=== PATIENT | male | born 1975 | race Caucasian/White ===

== ENCOUNTER 2019-02-12 10:14 | Inpatient (IN) ==
[2019-02-12] MEDS ORDERED: IOPAMIDOL 100 ML BOTTLE IV ONE (10:15)
[2019-02-12] MEDS ORDERED: 0.9 % SODIUM CHLORIDE 1,000 ML IV ONE ×3 (10:17→12:18)
[2019-02-12] MEDS ORDERED: ONDANSETRON 4 MG/2 ML VIAL IV ONE ×2 (10:23→13:50)
--- NOTE | 2019-02-12 10:26 | Emergency Department Note ---
Abdominal Pain HPI - General Chief Complaint: Abdominal Pain Stated Complaint: right lower abd pain that started 15 min ago Time Seen by Provider: 02/12/19 10:20 Source: patient Mode of arrival: wheelchair Limitations: no limitations - History of Present Illness HPI Narrative: This patient had a sudden onset of pretty severe abdominal pain about 15 minutes ago. He is complaining about his right lower quadrant but he is pretty tender and almost rigid in the epigastrium as well. He thinks he may actually have an ulcer currently. He has never had a kidney stone. He has had flulike symptoms for the last couple of days with nausea vomiting diarrhea. He does not feel any pain in his back. - Related Data Home Medications Medication Instructions Recorded Confirmed No Known Home Meds 03/18/18 02/12/19 Allergies Allergy/AdvReac Type Severity Reaction Status Date / Time No Known Drug Allergies Allergy Unverified 03/18/18 16:55 Review of Systems All systems ED: reviewed and negative except as stated. Abdominal Pain PMH - Past Medical History Medical history: Reports: seizures, thyroid disease Psychiatric history: Reports: anxiety, depression - Social History Smoking status: Current every day smoker Physical Exam Limitations: no limitations General appearance: alert Head: atraumatic Eye: Present: normal appearance ENT: Present: normal exam Neck: Present: normal inspection Chest: Present: normal inspection Respiratory: Present: normal lung sounds bilaterally Cardiovascular: Present: regular rate, normal rhythm, normal heart sounds Abdominal: Present: soft, tenderness, guarding. Absent: distention Abdominal tenderness: Present: diffuse, moderate Neurological: Present: alert Psychiatric: Present: normal affect Skin: Present: warm, dry Course Vital Signs Temperature 97.4 F 02/12/19 10:15 Pulse Rate 86 02/12/19 10:15 Respiratory Rate 18 02/12/19 10:15 Blood Pressure 95/60 02/12/19 10:15 Pulse Oximetry (%) 96 02/12/19 10:15 Temperature 97.4 F 02/12/19 10:48 Pulse Rate 76 02/12/19 10:48 Respiratory Rate 17 02/12/19 10:48 Blood Pressure 97/72 02/12/19 10:48 Pulse Oximetry (%) 99 02/12/19 10:48 Abdominal Pain - [facility] Narrative Medical decision making narrative: Surprisingly this patient CT scan shows severe appendicitis with even possible small abscess. Plain film was negative. No free air seen. I did discuss the case with Dr. Lam who will see the patient shortly and take him to surgery. He is given Zosyn. - Lab Data Lab results reviewed: Yes I reviewed the patient's lab results. Result diagrams: 02/12/19 10:20 02/12/19 10:20 Lab Results 02/12/19 02/12/19 Range/Units 10:20 10:20 Band Neutrophils % Not Reportable VBG Lactic Acid 3.0 H (0.5-2.0) mmol/L - Radiology Data Radiology results reviewed: Yes I reviewed the patient's radiology results. Disposition Pt seen by CHANGE MANAGEMENT LEAD/PA only: No Clinical Impression: Acute appendicitis Disposition: Xfer As Outpt/Obs ([facility]) Condition: Good Referrals: No,PCP [Primary Care Provider] - Time of Disposition: 11:26
[2019-02-12] MEDS: HYDROmorphone 2 MG/ML VIAL IV PRN ×2 (10:33→11:09)
[2019-02-12] MEDS ORDERED: PIPERACILLIN SODIUM/TAZOBACTAM 3.375 GM in DEXTROSE 5% IN WATER 50 ML IV ONE (11:01)
--- NOTE | 2019-02-12 11:08 | Cat Scan Report ---
History: New onset severe right lower quadrant pain TECHNIQUE: The patient was imaged following intravenous but no oral contrast scanning from the diaphragm to the symphysis pubis. Sagittal and coronal reformats were created. Radiation exposure was limited using dose reduction technology. FINDINGS: The liver and spleen are normal in size and homogeneous. The small hiatus hernia. The gallbladder and bile ducts are normal. There is no evidence of a mass or inflammation the pancreas. The adrenals and kidneys are normal. There is no kidney stone or hydronephrosis. The patient has ileus pattern with several borderline distended fluid-filled loops of small bowel. Some of them contain air-fluid levels.. The appendix is severely inflamed and distended. It measures 1.5 cm in transverse diameter and there is a large amount of inflammation of the fat surrounding it. No appendicolith is present. Along the inferior border of the inflamed appendix there is a pocket of fluid with bubbles of air. This is more likely a partially collapsed cecum, rather than an abscess. No free intraperitoneal air is present. Trace amount of ascites is seen deep in the right lower pelvis. IMPRESSION: Severe appendicitis Dr. Roca was called with the results Interpreted and Authenticated by: Ga Jacome 02/12/19
--- NOTE | 2019-02-12 11:27 | XRay Report ---
HISTORY: New onset severe right lower quadrant pain FINDINGS: No free intra-abdominal air is present. There are couple loops of mildly dilated small bowel with air-fluid levels in left mid abdomen. There is also a moderate amount of fluid with air-fluid level in the stomach. The colon is decompressed. There is no apparent mass or abscess. IMPRESSION: Mild ileus Interpreted and Authenticated by: Ga Jacome 02/12/19
[2019-02-12 11:28] LABS: Hematocrit 42.6 % (40.1-51.0); Hemoglobin 14.7 g/dL (13.7-17.5); Mean Cell Volume 97.3 fL (80.0-100.0); Mean Corpuscular HGB Conc 34.5 g/dL (31.0-36.0); Mean Platelet Volume 10.7 fL (7.4-10.4); Platelet Count 217 K/mcL (140-440); RBC 4.38 M/mcL (4.63-6.08)
[2019-02-12 11:41] LABS: ALT/SGPT 35 U/l (0-40); AST/SGOT 32 U/l (0-37); Albumin 4.3 gm/dL (3.2-5.2); Albumin/Globulin Ratio 1.3 (1.0-2.3); Alkaline Phosphatase 95 U/L (39-117); Bilirubin,Total 1.3 mg/dL (0.0-1.0); Blood Urea Nitrogen 20 mg/dl (6-20); Calcium 9.2 mg/dl (8.6-10.4); Carbon Dioxide 21 mmol/L (22-30); Globulin 3.3 gm/dL (2.2-3.7); Glomerular Filtration Rate 109; Glucose 127 mg/dL (70-105)
[2019-02-12 11:48] LABS: Chloride 93 mmol/L (96-108)
[2019-02-12 11:55] LABS: Band Neutrophils % 21 % (0-10); Lymphocytes % 2 % (15-49); Metamyelocytes % 2 % (0-0); Monocytes % (Manual) 3 % (1-12); Platelet Estimate NORMAL (NORMAL); RBC Morphology NORMAL (NORMAL); Segmented Neutrophils % 72 % (38-78)
--- NOTE | 2019-02-12 13:14 | General Surg History&Physical ---
History of Present Illness Patient information: Note initiated : 02/12/19 at 1:12 pm Service Date, if different from initiated Date: [] Patient: Sp Yu a 43 y/o M admitted on for right lower abd pain that started 15 min ago. Chief Complaint: [] HPI: Mr. Yu is a 43 year old M Admitted with acute appendicitis. The patient has a 2 day history of flulike symptoms. He had some lower abdominal pain with fullness and bloating followed by nausea and vomiting. Most of the nausea and vomiting was on Sunday. Today he developed acute severe pain about 15 minutes before coming to the emergency room. He was seen in the emergency room with right lower quadrant tenderness with findings of 31,000, white count. Lactate was 3. Inpatient panel was normal. CT shows this markedly dilated appendix with periappendiceal inflammation and fluid. He is admitted with acute appendicitis. Review of Systems All systems PM: reviewed and no additional remarkable complaints except as stated (negative except as noted in history of present illness) Past History Past medical history: Prior history of seizure disorder but none in the past year and he is not on any therapy. Anxiety with depression Past surgical history: No surgical procedures Past family history: Mother age 63 due to complications of chronic obstructive lung disease and kidney failure. Father age 64 due to coronary artery disease and acute myocardial infarction. 2 siblings alive and well without illness Past social history: Smokes every day about one half pack of cigarettes per day. Drinks beer frequently. Uses marijuana frequently Medications and Allergies Home Medications Medication Instructions Recorded Confirmed Type No Known Home Meds 03/18/18 02/12/19 History Allergies Allergy/AdvReac Type Severity Reaction Status Date / Time No Known Drug Allergies Allergy Unverified 03/18/18 16:55 Exam Temp Pulse Resp BP Pulse Ox 97.4 F 86 12 102/77 98 02/12/19 10:48 02/12/19 12:16 02/12/19 11:31 02/12/19 12:16 02/12/19 12:16 - General physical appearance well developed, no distress, other (underweight) - Eyes PERRL, normal ocular movement - ENT normal pinna, normal nares, normal mucosa, no hearing loss, no congestion - Head Head exam IM: Present: atraumatic, normocephalic - Neck no masses, no bruits, trachea midline, no lymphadenopathy, no venous distension - Cardiovascular Cardiovascular exam IM: Present: normal rate and rhythm - Respiratory normal expansion, normal respiratory effort, clear to auscultation - Abdomen Abdomen: Present: soft, tender (. Diffuse tenderness with guarding or rebound IN The right lower quadrant), bowel sounds Hernia: Present: none - Genitourinary Present: normal penis with no external lesions, other ( indwelling Charlton catheter) - Integumentary Present: no rash, no growths, no abnormal pigmentation - Neurologic Present: normal coordination, normal sensation - Musculoskeletal Present: normal gait, normal posture - Psychiatric Present: oriented to time, oriented to person, oriented to place, speech is normal, memory intact Assessment and Plan (1) Acute appendicitis Patient is counseled for laparoscopic appendectomy and that will be performed later today. Status: Acute
[2019-02-12] MEDS ORDERED: SUGAMMADEX SODIUM 200 MG/2 ML VIAL IV ONE (13:50)
[2019-02-12] MEDS ORDERED: MIDAZOLAM 5 MG/5 ML VIAL IV ONE (13:50)
[2019-02-12] MEDS ORDERED: fentaNYL 250 MCG/5 ML VIAL IV ONE (13:50)
[2019-02-12] MEDS ORDERED: DEXAMETHASONE 10 MG/ML VIAL IV ONE (13:50)
[2019-02-12] MEDS ORDERED: ROCURONIUM 10 MG/ML ML IV ONE (13:50)
[2019-02-12] MEDS ORDERED: LIDOCAINE HCL/PF 100 MG/5 ML SYRINGE IV ONE (13:50)
[2019-02-12] MEDS ORDERED: PROPOFOL 200 MG/20 ML VIAL IV ONE (13:50)
[2019-02-12] MEDS ORDERED: HETASTARCH 6% 500 ML BAG IV ONE (13:50)
[2019-02-12] MEDS ORDERED: IPRATROPIUM/ALBUTEROL 3 ML AMPUL.NEB NEB PRN (14:26)
[2019-02-12] MEDS ORDERED: diphenhydrAMINE 50 MG/ML VIAL IV PRN (14:26)
[2019-02-12] MEDS ORDERED: LACTATED RINGERS 250 ML IV PRN (14:26)
[2019-02-12] MEDS ORDERED: BENZOCAINE/MENTHOL 1 LOZENGE PO PRN (14:26)
[2019-02-12] MEDS ORDERED: KETOROLAC 30 MG/ML VIAL IV PRN (14:26)
[2019-02-12] MEDS ORDERED: ONDANSETRON 4 MG/2 ML VIAL IV PRN (14:26)
[2019-02-12] MEDS ORDERED: MEPERIDINE 25 MG/ML SYRINGE IV PRN (14:26)
[2019-02-12] MEDS ORDERED: PROMETHAZINE 25 MG/ML VIAL IV PRN ×2 (14:26→14:54)
[2019-02-12] MEDS ORDERED: FLUMAZENIL 0.1 MG/ML ML IV PRN (14:26)
[2019-02-12] MEDS ORDERED: fentaNYL 100 MCG/2 ML VIAL IV PRN (14:26)
[2019-02-12] MEDS ORDERED: NALOXONE HCL 0.4 MG/ML VIAL IV PRN (14:26)
[2019-02-12] MEDS ORDERED: ACETAMINOPHEN 1,000 MG/100 ML BOTTLE IV ONE ×2 (14:26→20:28)
--- NOTE | 2019-02-12 14:28 | XRay Report ---
HISTORY: Preop for appendicitis FINDINGS: The lungs are clear. The heart, mediastinum, buck and pleura are normal. There is a subcutaneously implanted lap winding machine operator device in the left chest wall, lateral to the sternum. The heart is normal in size and there is no pulmonary vascular congestion. No free intra-abdominal air is present. IMPRESSION: Normal chest. Interpreted and Authenticated by: Ga Jacome 02/12/19
[2019-02-12] MEDS ORDERED: LACTATED RINGERS 1,000 ML IV SCH (14:30)
--- NOTE | 2019-02-12 14:48 | Brief Operative Note ---
Date of procedure: 02/12/19 Pre-op diagnosis: acute appendicitis Post-op diagnosis: other (acute gangrrenous appendicitis with perforation) Procedure: laparoscopic appendectomy Grafts/Implants: No (julio x 1) Anesthesia: GETA Findings: severe gangrenous appendicitis with perforation Complications: none Surgeon: Jazmyne Lam Estimated blood loss (cc): 20 Specimens Removed/Pathology: other (appendix) Condition: stable Disposition: PACU
[2019-02-12] MEDS: PIPERACILLIN SODIUM/TAZOBACTAM 3.375 GM in DEXTROSE 5% IN WATER 50 ML IV SCH (19:15)
[2019-02-12] MEDS: LACTATED RINGERS 1,000 ML IV SCH ×2 (19:25→23:54)
[2019-02-12] MEDS: ACETAMINOPHEN 1,000 MG in PREMIX 1 BAG IV SCH (20:31)
[2019-02-12] MEDS: 0.9 % SODIUM CHLORIDE 10 ML SYRINGE IV SCH (20:38)
[2019-02-13] MEDS: LACTATED RINGERS 1,000 ML IV SCH ×5 (00:19→21:49)
[2019-02-13] MEDS: PIPERACILLIN SODIUM/TAZOBACTAM 3.375 GM in DEXTROSE 5% IN WATER 50 ML IV SCH ×5 (00:22→23:27)
[2019-02-13] MEDS ORDERED: ACETAMINOPHEN 1,000 MG/100 ML BOTTLE IV ONE ×3 (01:33→14:44)
[2019-02-13] MEDS: ACETAMINOPHEN 1,000 MG in PREMIX 1 BAG IV SCH ×3 (02:01→15:34)
[2019-02-13] MEDS: 0.9 % SODIUM CHLORIDE 10 ML SYRINGE IV SCH ×3 (06:08→21:49)
[2019-02-13 07:15] LABS: Bilirubin,Direct < 0.2 mg/dL (0.0-0.3)
[2019-02-13 07:24] LABS: ALT/SGPT 55 U/l (0-40); AST/SGOT 63 U/l (0-37); Albumin 2.7 gm/dL (3.2-5.2); Alkaline Phosphatase 73 U/L (39-117); Bilirubin,Total 0.8 mg/dL (0.0-1.0); Blood Urea Nitrogen 12 mg/dl (6-20); Calcium 7.9 mg/dl (8.6-10.4); Carbon Dioxide 24 mmol/L (22-30); Chloride 106 mmol/L (96-108); Globulin 2.7 gm/dL (2.2-3.7); Glomerular Filtration Rate 104; Glucose 101 mg/dL (70-105); Lactate Dehydrogenase 247 U/L (94-250); Phosphorous 2.9 mg/dL (2.7-4.5); Triglycerides 60 mg/dl (<150); Uric Acid 1.8 mg/dL (2.5-8.0)
[2019-02-13 08:21] LABS: Basophils # (Auto) 0.01 K/mcL (0.00-0.30); Basophils % (Auto) 0.1 % (0.0-2.0); Eosinophils # (Auto) 0 K/mcL (0.00-0.70); Eosinophils % (Auto) 0 % (0.0-7.0); Granulocytes % (Auto) 88.6 % (38.0-78.0); Hematocrit 34.5 % (40.1-51.0); Hemoglobin 11.3 g/dL (13.7-17.5); Lymphocytes # (Auto) 0.62 K/mcL (1.50-4.80); Lymphocytes % (Auto) 4.7 % (15.5-49.0); Mean Cell Volume 100.5 fL (80.0-100.0); Mean Corpuscular HGB Conc 32.8 g/dL (31.0-36.0); Monocytes # (Auto) 0.87 K/mcL (0.10-0.90); Monocytes % (Auto) 6.6 % (1.0-12.0); Platelet Count 151 K/mcL (140-440); RBC 3.42 M/mcL (4.63-6.08); Red Cell Distribution Width 13.3 % (11.5-14.5); WBC 13.2 K/mcL (4.50-11.00)
--- NOTE | 2019-02-13 11:50 | General Surgery Progress Note ---
Subjective Patient reports: feels better, still having pain, pain is less, tolerating liquids well, flatus, no bowel movement, afebrile Narrative: Note initiated : 02/13/19 at 11:49 am Service Date, if different from initiated Date: [] Patient: Sp Yu 43 y/o M admitted on 02/12/19 for right lower abd pain that started 15 min ago. Chief Complaint: [patient is doing well status post laparoscopic appendectomy for perforated appendix. He has moderate amount of pain and has some nausea. He is afebrile and his white blood count has decreased from 30,000-13,000. White blood count 13.2, hemoglobin 11.3, hematocrit 34.5. ROXANN drainage is seropurulent and in large volumes.] Objective Temp Pulse Resp BP Pulse Ox 98.2 F 66 20 107/68 96 02/13/19 07:27 02/13/19 02:35 02/13/19 07:27 02/13/19 07:27 02/13/19 07:27 - Additional Data Intake & Output - Last 24 hours: Intake & Output 02/11/19 02/12/19 02/13/19 02/14/19 05:59 05:59 05:59 05:59 Intake Total 8970 1150 Output Total 2050 175 Balance 6920 975 Weight 160 lb 8 oz - General physical appearance well developed, well nourished, no distress, moderate pain - Eyes PERRL, normal ocular movement - ENT normal pinna, normal nares, normal mucosa, no hearing loss, no congestion - Neck no masses, no bruits, trachea midline, no lymphadenopathy, no venous distension - Respiratory normal expansion, normal respiratory effort, clear to auscultation - Cardiovascular Cardiovascular exam: Present: normal rate and rhythm, RRR, +S1, +S2. Absent: JVD, tachycardia - Abdomen tender (moderate abdominal tenderness; active bowel sounds; mild abdominal distention) - Integumentary no rash, no growths, no abnormal pigmentation - Neurologic normal coordination, normal sensation - Musculoskeletal normal gait, normal posture - Psychiatric oriented to time, oriented to person, oriented to place, speech is normal, memory intact - Labs 02/13/19 05:15 02/13/19 05:15 Diabetes panel 02/13/19 Range/Units 05:15 Sodium 139 (133-145) mmol/L Potassium 3.9 (3.3-5.1) mmol/L Chloride 106 (96-108) mmol/L Carbon Dioxide 24 (22-30) mmol/L BUN 12 (6-20) mg/dl Creatinine 0.9 (0.7-1.2) mg/dl Glucose 101 (70-105) mg/dL Calcium 7.9 L (8.6-10.4) mg/dl AST 63 H (0-37) U/l ALT 55 H (0-40) U/l Alkaline Phosphatase 73 (39-117) U/L Total Protein 5.4 L (5.9-8.4) gm/dL Albumin 2.7 L (3.2-5.2) gm/dL Triglycerides 60 (<150) mg/dl Calcium panel 02/13/19 Range/Units 05:15 Calcium 7.9 L (8.6-10.4) mg/dl Phosphorus 2.9 (2.7-4.5) mg/dL Albumin 2.7 L (3.2-5.2) gm/dL Pituitary panel 02/13/19 Range/Units 05:15 Sodium 139 (133-145) mmol/L Potassium 3.9 (3.3-5.1) mmol/L Chloride 106 (96-108) mmol/L Carbon Dioxide 24 (22-30) mmol/L BUN 12 (6-20) mg/dl Creatinine 0.9 (0.7-1.2) mg/dl Glucose 101 (70-105) mg/dL Calcium 7.9 L (8.6-10.4) mg/dl Adrenal panel 02/13/19 Range/Units 05:15 Sodium 139 (133-145) mmol/L Potassium 3.9 (3.3-5.1) mmol/L Chloride 106 (96-108) mmol/L Carbon Dioxide 24 (22-30) mmol/L BUN 12 (6-20) mg/dl Creatinine 0.9 (0.7-1.2) mg/dl Glucose 101 (70-105) mg/dL Calcium 7.9 L (8.6-10.4) mg/dl Total Bilirubin 0.8 (0.0-1.0) mg/dL AST 63 H (0-37) U/l ALT 55 H (0-40) U/l Alkaline Phosphatase 73 (39-117) U/L Total Protein 5.4 L (5.9-8.4) gm/dL Albumin 2.7 L (3.2-5.2) gm/dL Assessment and Plan (1) Acute appendicitis Status: Acute Assessment and plan: Patient will be continued on present IV antibiotics. Diet will be advanced. We'll recheck labs in the morning Current Visit: Yes - Time Spent With Patient Total time spent is greater than 50% in coordination of care (as documented) at patient's floor/unit and/or counseling patient:
--- NOTE | 2019-02-13 13:42 | Surgical Pathology Report ---
HISTOLOGY SPECIMEN MICROSCOPIC DIAGNOSIS APPENDIX, APPENDECTOMY: -- ACUTE APPENDICITIS WITH ACUTE SEROSITIS. (RLF:sln) PROCEDURAL IMPRESSION Appendicitis. GROSS DESCRIPTION Received in formalin labeled appendix, is a wang-mejia appendix that measures 11.3 cm in length by 1.3 cm in diameter. There is wang-mejia exudate on the mucosal surface. The resection margin is stapled. This is inked black. Sectioning reveals pink-mejia fluid. Grossly there are no perforations identified. Applied Computer Science Professor sections submitted in one cassette. (SCB:adj) Electronically Signed by: Taylor Peter M.D.
[2019-02-13] MEDS: HYDROmorphone 2 MG/ML VIAL IV PRN (23:28)
[2019-02-14] MEDS: LACTATED RINGERS 1,000 ML IV SCH ×2 (03:37→07:09)
[2019-02-14] MEDS: 0.9 % SODIUM CHLORIDE 10 ML SYRINGE IV SCH (04:08)
[2019-02-14] MEDS: PIPERACILLIN SODIUM/TAZOBACTAM 3.375 GM in DEXTROSE 5% IN WATER 50 ML IV SCH ×2 (05:32→12:24)
[2019-02-14] MEDS: HYDROmorphone 2 MG/ML VIAL IV PRN (05:35)
[2019-02-14 07:09] LABS: Basophils # (Auto) 0.03 K/mcL (0.00-0.30); Basophils % (Auto) 0.3 % (0.0-2.0); Eosinophils # (Auto) 0.08 K/mcL (0.00-0.70); Eosinophils % (Auto) 0.8 % (0.0-7.0); Granulocytes % (Auto) 85.8 % (38.0-78.0); Hematocrit 36.5 % (40.1-51.0); Hemoglobin 12.1 g/dL (13.7-17.5); Lymphocytes # (Auto) 0.69 K/mcL (1.50-4.80); Mean Cell Volume 99.5 fL (80.0-100.0); Mean Corpuscular HGB Conc 33.2 g/dL (31.0-36.0); Mean Platelet Volume 11.1 fL (7.4-10.4); Monocytes % (Auto) 6.1 % (1.0-12.0); Platelet Count 161 K/mcL (140-440); RBC 3.67 M/mcL (4.63-6.08); Red Cell Distribution Width 12.6 % (11.5-14.5); WBC 9.9 K/mcL (4.50-11.00)
[2019-02-14 07:10] LABS: ALT/SGPT 67 U/l (0-40); AST/SGOT 54 U/l (0-37); Albumin 2.6 gm/dL (3.2-5.2); Alkaline Phosphatase 188 U/L (39-117); Bilirubin,Direct 0.2 mg/dL (0.0-0.3); Bilirubin,Total 0.7 mg/dL (0.0-1.0); Blood Urea Nitrogen 9 mg/dl (6-20); Calcium 8.2 mg/dl (8.6-10.4); Carbon Dioxide 23 mmol/L (22-30); Chloride 103 mmol/L (96-108); Globulin 2.6 gm/dL (2.2-3.7); Glomerular Filtration Rate 104; Glucose 92 mg/dL (70-105); Lactate Dehydrogenase 147 U/L (94-250); Triglycerides 94 mg/dl (<150); Uric Acid 1.9 mg/dL (2.5-8.0)
[2019-02-14 07:22] LABS: Phosphorous 1.3 mg/dL (2.7-4.5)
[2019-02-14] MEDS ORDERED: oxyCODONE/APAP 10/325MG TABLET PO PRN (07:29)
[2019-02-14] MEDS ORDERED: POTASSIUM PHOSPHATE 40 MEQ in DEXTROSE 5% IN WATER 500 ML IV ONE (07:31)
--- NOTE | 2019-02-14 11:55 | Discharge Summary ---
Providers - Providers Patient information: Note initiated : 02/14/19 at 11:54 am Service Date, if different from initiated Date: [] Patient: Sp Yu 43 y/o M admitted on 02/12/19 for right lower abd pain that started 15 min ago. Chief Complaint: [] Date of admission: 02/12/19 Discharge date: 02/14/19 Attending physician: Jazmyne Lam Hospitalization Hospital Course: 33-year-old male who presented to the emergency room with severe right lower quadrant pain. He gave a history of having viral-like symptoms with abdominal discomfort and nausea. 2 days prior to being seen in the emergency room. He developed acute severe pain about 20 minutes before evaluation. He was noted to have a white count of 31,000. CT scan confirmed acute appendicitis. He underwent laparoscopic appendectomy. Because of his extensive leukocytosis. He was treated with antibiotics for 2 days. His white blood count today is 9900. He is afebrile and is clinically stable. He is tolerating diet without difficulty. He is stable for discharge home. Discharge diagnosis: acute appendicitis with perforation Reason for admission: acute appendicitis Procedures: Laparoscopic appendectomy Pertinent studies/significant findings: CT of abdomen and pelvis with contrast Complications: None Exam Temp Pulse Resp BP Pulse Ox 98.4 F 69 14 108/75 94 02/14/19 07:34 02/14/19 07:34 02/14/19 07:34 02/14/19 07:34 02/14/19 07:34 - General physical appearance well developed, well nourished, no distress - Eyes PERRL, normal ocular movement - ENT normal pinna, normal nares, normal mucosa, no hearing loss, no congestion - Head Head exam IM: Present: atraumatic, normocephalic - Neck no masses, no bruits, trachea midline, no lymphadenopathy, no venous distension - Cardiovascular Cardiovascular exam IM: Present: normal rate and rhythm - Respiratory normal expansion, normal respiratory effort, clear to percussion, clear to auscultation - Abdomen Abdomen: Present: soft, non tender, bowel sounds, distended (mild abdominal distention; mild tenderness in the portal sites; good active bowel sounds) Hernia: Present: none - Genitourinary Present: normal penis with no external lesions - Integumentary Present: no rash, no growths, no abnormal pigmentation - Neurologic Present: normal coordination, normal sensation - Musculoskeletal Present: normal gait, normal posture - Psychiatric Present: oriented to time, oriented to person, oriented to place, speech is normal, memory intact Discharge Plan - Patient/Caregiver Discharge Instructions Activity: increase activity as tolerated Diet: Regular Diet Additional Instructions: EMPTY ROXANN drain Once twice daily as needed. Office visit in 2 weeks Prescriptions: metroNIDAZOLE [Flagyl] 500 mg PO Q8 #30 tab Transmission Status: Pending to [address] Levofloxacin [Levaquin] 750 mg PO DAILY #10 tab Transmission Status: Pending to [address] oxyCODONE/APAP [Percocet 10-325Mg] 1 tab PO Q4HP PRN #60 tab PRN Reason: Per Pain Protocol Transmission Status: Received by [address] - Follow up Plan Follow up with: No,PCP [Primary Care Provider] - Disposition: Home, Self-Care Prognosis: Good Rehab Potential: Good I certify that the patient requires SNF services.: No Overall status at discharge: patient is progressing back to baseline Pending Studies Resuscitation Status Full Code Diet GI Soft/Transitional Start Soradia Feb 13 818 Hydromorphone HCl (Dilaudid) 0.5 mg IV Q2HP PRN; Protocol PRN Reason: Per Pain Protocol Last Admin: 02/14/19 05:35 Dose: 0.5 mg Documented by: Admin: 02/13/19 23:28 Dose: 0.5 mg Documented by: RONDA Lactated Ringer's (Lactated Ringers) 1,000 mls @ 200 mls/hr IV .Q5H [facility] Last Admin: 02/14/19 07:09 Dose: 200 mls/hr Documented by: Infusion: 02/14/19 07:09 Dose: 200 mls/hr Documented by: Admin: 02/14/19 03:37 Dose: 200 mls/hr Documented by: Infusion: 02/14/19 02:49 Dose: 200 mls/hr Documented by: Admin: 02/13/19 21:49 Dose: 200 mls/hr Documented by: Infusion: 02/13/19 21:42 Dose: 200 mls/hr Documented by: Admin: 02/13/19 16:42 Dose: 200 mls/hr Documented by: Infusion: 02/13/19 16:18 Dose: 0 mls/hr Documented by: Admin: 02/13/19 10:48 Dose: 200 mls/hr Documented by: [email or web address] Infusion: 02/13/19 10:25 Dose: 200 mls/hr Documented by: Admin: 02/13/19 05:25 Dose: 200 mls/hr Documented by: Infusion: 02/13/19 05:19 Dose: 200 mls/hr Documented by: Admin: 02/13/19 00:19 Dose: 200 mls/hr Documented by: Infusion: 02/13/19 00:19 Dose: 200 mls/hr Documented by: Admin: 02/12/19 23:54 Dose: Not Given Documented by: Admin: 02/12/19 19:25 Dose: 200 mls/hr Documented by: REUBEN Piperacillin Sod/Tazobactam (Sod 3.375 gm/ Dextrose) 50 mls @ 100 mls/hr IV Q6H VALENTINO; Protocol Last Infusion: 02/14/19 06:39 Dose: 0 mls/hr Documented by: Admin: 02/14/19 05:32 Dose: 100 mls/hr Documented by: Infusion: 02/13/19 23:57 Dose: 100 mls/hr Documented by: Admin: 02/13/19 23:27 Dose: 100 mls/hr Documented by: Infusion: 02/13/19 18:02 Dose: 0 mls/hr Documented by: [email or web address] Admin: 02/13/19 17:21 Dose: 100 mls/hr Documented by: [email or web address] Infusion: 02/13/19 13:10 Dose: 0 mls/hr Documented by: Admin: 02/13/19 12:26 Dose: 100 mls/hr Documented by: [email or web address] Infusion: 02/13/19 07:00 Dose: 0 mls/hr Documented by: Admin: 02/13/19 06:08 Dose: 100 mls/hr Documented by: Infusion: 02/13/19 01:00 Dose: 0 mls/hr Documented by: Admin: 02/13/19 00:22 Dose: 100 mls/hr Documented by: Infusion: 02/12/19 20:00 Dose: 0 mls/hr Documented by: Admin: 02/12/19 19:15 Dose: 100 mls/hr Documented by: REUBEN Sodium Chloride (Saline Flush) 10 ml IV Q8 VALENTINO Last Admin: 02/14/19 04:08 Dose: Not Given Documented by: Admin: 02/13/19 21:49 Dose: 10 ml Documented by: Admin: 02/13/19 14:49 Dose: Not Given Documented by: Admin: 02/13/19 06:08 Dose: 10 ml Documented by: Admin: 02/12/19 20:38 Dose: 10 ml Documented by: REUBEN Shift Summary 02/14/19 04:05 Shift Summary by Denise Meyer JP with 280mls out this shift. Pt medicated x1 for c/o pain with Dilaudid. IV Ofirmev no longer ordered. LR at 200mls/hr, continues on Zosyn. WBC down from 30 to 13 with am labs pending. Up with SBA. Using urinal to void. Will update with verbal report. Initialized on 02/14/19 04:05 - END OF NOTE
--- NOTE | 2019-02-25 16:58 | Operative Note ---
DATE OF OPERATION: 02/12/2019 PREOPERATIVE DIAGNOSIS: Acute appendicitis. POSTOPERATIVE DIAGNOSIS: Acute appendicitis. PROCEDURE: Laparoscopic appendectomy. SURGEON: Jazmyne Lam M.D. FINDINGS: Severe gangrenous appendicitis with perforation. DESCRIPTION OF PROCEDURE: Under general anesthesia, the patient's abdomen was prepped and draped in a sterile field. Supraumbilical incision was made and Veress needle was inserted. Abdomen was insufflated with 3 liters of CO2. A 12 mm port was placed. Laparoscope was placed. A 5 mm port was placed in the suprapubic midline and a 12 mm port in the left lower quadrant. The severely inflamed appendix was noted in the right gutter. The patient was placed in deep Trendelenburg position and rotated to the left. The appendix was grasped at the base of the cecum. Using sharp and blunt dissection with the assistance of electrocautery, the appendix was from the surrounding tissue. Once it was free, a window was made at the base, and the base was transected using an Endo ZOILA stapler. The mesoappendix was very short, so it was dissected sequentially, clipped with multiple clips, and divided. The appendix was placed in an Endopouch and retrieved. Irrigation was carried out. There was pus above the liver. This was irrigated and suctioned. There was also a moderate amount of pus in the pelvis which was also irrigated and suctioned. ROXANN drain was placed in the bed of the resected appendix. It was brought out through the suprapubic midline incision. CO2 was allowed to escape from the abdomen and the ports were removed. Fascia at the umbilicus was closed with interrupted 0 Vicryl. Skin incisions were closed with apple. Tegaderm dressings were placed. The patient tolerated the procedure well. He was awakened, transferred to a bed, and taken to the postanesthetic care unit in stable, satisfactory condition. LCS:jarvis Job ID: [id number] Doc ID: [id number] Jazmyne Lam M.D.
== END 2019-02-14 14:30 | disposition home or self-care (01) | DRG 340 ==
LOC: ED 10:14 → MEDSUROUT 13:00 → MEDSUR 14:48
PROVIDERS: ADMIT Family Medicine Adult Medicine; ATTEND Family Medicine Adult Medicine